=== PATIENT | male | born 1990 | race American Indian/Alaskan Native ===

== ENCOUNTER 2017-04-16 17:01 | Emergency (ER) | payer SELFPAY ==
[2017-04-16] MEDS ORDERED: NACL 0.9% 1000 ML 1,000 ML IV ONE (17:13)
--- NOTE | 2017-04-16 17:35 | Emergency Department Report ---
Chief Complaint: GI Bleed Stated Complaint: BLOOD FROM RECTUM Time Seen by Provider: 04/16/17 17:31 - HPI History of Present Illness: 26 y/o with recal bleeding and pain since Saturday. Hx/o Wiscott-Boyd syndrome. - ROS Review of Systems: denies any fever just chills and recatal pain - Exam Vital Signs: Vital Signs 04/16/17 17:10 Temperature 98.3 F Pulse Rate 129 H Respiratory 22 Rate Blood Pressure 135/94 O2 Sat by Pulse 97 Oximetry Physical Exam: Gen: alert oriented NAD Cardic: regular rate and rhythm no murmurs appreciated Resp: Clear to auscultation bilateral no wheezing no rales or rhonchi. Abdomen: Soft nontender nondistended normal bowel sounds. Mini neuro: Normal finger to nose exam, [id number] normal, Romberg neg, strengh 4/5 all extrimities, Alert and oriented time 3 Crainal nerve II-IIX intact MSE screening note: Focused history and physical exam performed. Due to findings the following was ordered: CBC CMP type and screen ordered patient be evaluated the main ER ED Disposition for MSE Condition: Stable Forms: Accompanied Note
[2017-04-16 17:47] LABS: Hematocrit 53.5 % (35.5-45.6); Hemoglobin 17.3 gm/dl (11.8-15.2); Mean Corpuscular HGB Conc 32 % (32-34); Mean Corpuscular Hemoglobin 26 pg (28-32); Mean Corpuscular Volume 82 fl (84-94); Red Blood Count 6.56 M/mm3 (3.65-5.03); Red Cell Distribution Width 14.2 % (13.2-15.2); White Blood Count 18.5 K/mm3 (4.5-11.0)
[2017-04-16 17:54] LABS: INR 1.12 (0.87-1.13)
[2017-04-16 17:55] LABS: Partial Thromboplastin Time 27.6 Sec. (24.2-36.6)
[2017-04-16 18:09] LABS: Alanine Aminotransferase 19 units/L (7-56); Albumin 4.2 g/dL (3.9-5); Alkaline Phosphatase 125 units/L (35-129); Anion Gap 25 mmol/L; BUN/Creatinine Ratio 12.72; Blood Urea Nitrogen 14 mg/dL (9-20); Calcium 10.1 mg/dL (8.4-10.2); Carbon Dioxide 25 mmol/L (22-30); Chloride 92.9 mmol/L (98-107); Glucose 104 mg/dL (75-100); Lipase 11 units/L (13-60); Potassium 3.4 mmol/L (3.6-5.0); Sodium 139 mmol/L (137-145); Total Protein 8.6 g/dL (6.3-8.2)
[2017-04-16 18:46] LABS: Basophils % (Manual) 0 % (0.0-1.8); Blastocytes % (Manual) 0 %; Eosinophils % (Manual) 0 % (0.0-4.3)
[2017-04-16 18:47] LABS: Diff Status Complete; Platelet Estimate Appears Decreased; RBC Morphology Normal
[2017-04-16 18:48] LABS: Platelet Count 76 K/mm3 (140-440)
--- NOTE | 2017-04-17 02:52 | Emergency Department Report ---
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 Patient states someone on for the last 5 days. He is had some blood in his underwear but has not had any bloody diarrhea. He has never encountered these symptoms before. Denies any constipation, diarrhea or abdominal pain. Severity scale (0 -10): 10 - Related Data Previous Rx's Medication Instructions Recorded Last Taken Type HYDROcodone/APAP 5-325 [[place] 1 each PO Q6HR PRN #20 tablet 03/31/14 Unknown Rx 5/325 mg] Amoxicillin [Trimox CAP] 500 mg PO Q8H #30 capsule 05/17/14 Unknown Rx HYDROcodone/APAP 5-325 [[place] 1 each PO Q6HR PRN #10 tablet 05/17/14 Unknown Rx 5/325] Ciprofloxacin [Ciprofloxacin ORAL 500 mg PO Q12H #14 ml 08/02/15 Unknown Rx LIQ] Phenazopyridine [Pyridium] 100 mg PO TID #6 tab 08/02/15 Unknown Rx Ibuprofen [Motrin] 800 mg PO Q8HR PRN #30 tablet 10/08/15 Unknown Rx Azithromycin [Zithromax Z-JOHANN] 250 mg PO DAILY #6 tab 12/15/15 Unknown Rx Chlorhexidine Mouthwash [Peridex] 15 ml MM BID #1 bottle 12/15/15 Unknown Rx Acetaminophen/Codeine [Tylenol 1 tab PO Q6H PRN #12 tab 03/08/16 Unknown Rx /Codeine # 3 tab] Clindamycin [Clindamycin CAP] 150 mg PO QID #40 capsule 03/08/16 Unknown Rx Neomy/Polymyx B/Hc (Otic) Soln 4 drops OTIC TID #1 bottle 05/27/16 Unknown Rx [Cortisporin (Otic) Soln] Ibuprofen [Motrin] 600 mg PO Q8H PRN #20 tablet 04/17/17 Unknown Rx Sulfamethoxazole/Trimethoprim 1 each PO BID #20 tablet 04/17/17 Unknown Rx [Bactrim DS TAB] Allergies Allergy/AdvReac Type Severity Reaction Status Date / Time No Known Allergies Allergy Unverified 03/31/14 10:05 ED Review of Systems ROS: Stated complaint: BLOOD FROM RECTUM Other details as noted in HPI Comment: All other systems reviewed and negative Constitutional: denies: chills, fever ENT: denies: ear pain Respiratory: denies: cough Cardiovascular: denies: chest pain Gastrointestinal: denies: abdominal pain, vomiting, diarrhea Genitourinary: denies: dysuria Skin: denies: rash Psychiatric: denies: anxiety ED Past Medical Hx - Past Medical History Previous Medical History?: Yes Hx Hypertension: No Hx CVA: No Additional medical history: Wiscott-Cushing syndrome - Surgical History Past Surgical History?: Yes Additional Surgical History: Infusion port placed & removed; [place] teeth extraction - Social History Smoking Status: Unknown if ever smoked Substance Use Type: None - Medications Home Medications: Home Medications Medication Instructions Recorded Confirmed Last Taken Type HYDROcodone/APAP 5-325 [[place] 1 each PO Q6HR PRN #20 tablet 03/31/14 Unknown Rx 5/325 mg] Amoxicillin [Trimox CAP] 500 mg PO Q8H #30 capsule 05/17/14 Unknown Rx HYDROcodone/APAP 5-325 [[place] 1 each PO Q6HR PRN #10 tablet 05/17/14 Unknown Rx 5/325] Ciprofloxacin [Ciprofloxacin ORAL 500 mg PO Q12H #14 ml 08/02/15 Unknown Rx LIQ] Phenazopyridine [Pyridium] 100 mg PO TID #6 tab 08/02/15 Unknown Rx Ibuprofen [Motrin] 800 mg PO Q8HR PRN #30 tablet 10/08/15 Unknown Rx Azithromycin [Zithromax Z-JOHANN] 250 mg PO DAILY #6 tab 12/15/15 Unknown Rx Chlorhexidine Mouthwash [Peridex] 15 ml MM BID #1 bottle 12/15/15 Unknown Rx Acetaminophen/Codeine [Tylenol 1 tab PO Q6H PRN #12 tab 03/08/16 Unknown Rx /Codeine # 3 tab] Clindamycin [Clindamycin CAP] 150 mg PO QID #40 capsule 03/08/16 Unknown Rx Neomy/Polymyx B/Hc (Otic) Soln 4 drops OTIC TID #1 bottle 05/27/16 Unknown Rx [Cortisporin (Otic) Soln] Ibuprofen [Motrin] 600 mg PO Q8H PRN #20 tablet 04/17/17 Unknown Rx Sulfamethoxazole/Trimethoprim 1 each PO BID #20 tablet 04/17/17 Unknown Rx [Bactrim DS TAB] ED Physical Exam - General Limitations: No Limitations - Head Head exam: Present: atraumatic - Eye Eye exam: Present: normal appearance - ENT ENT exam: Present: normal exam - Neck Neck exam: Present: normal inspection - Respiratory Respiratory exam: Present: normal lung sounds bilaterally. Absent: respiratory distress - Cardiovascular Cardiovascular Exam: Present: normal rhythm, tachycardia - GI/Abdominal GI/Abdominal exam: Present: soft. Absent: distended, tenderness - Rectal Rectal exam: Present: other (external hemorrhoids present, tender to examination , examination limited as the patient has significant tenderness, no signs of a thrombosed hemorrhoid or perianal abscess, swelling and fluctuance above anus) ED Course Vital Signs 04/16/17 04/16/17 04/17/17 17:10 23:12 05:35 Temperature 98.3 F 98.1 F Pulse Rate 129 H 128 H 100 H Respiratory 22 26 H 16 Rate Blood Pressure 135/94 138/107 Blood Pressure 118/88 [Right] O2 Sat by Pulse 97 98 99 Oximetry 04/17/17 07:11 Temperature Pulse Rate 101 H Respiratory 16 Rate Blood Pressure Blood Pressure 122/86 [Right] O2 Sat by Pulse 99 Oximetry - I & D Buttocks Type of Procedure: Simple Site: midline buttox above anus Blade Size: 11 I & D Procedure: gauze wick placed Progress: 12 cc 2% Lidocaine with epinephrine injected into the site approximately 4 cm above the anus, 1.5 cm incision made with a scalpel, hemostat used to explore the wound and then the pocket with copious amounts of pus removed as very foul smelling, iodoform packing placed, dressing applied, no complications ED Medical Decision Making - Lab Data Result diagrams: 04/17/17 03:33 04/16/17 17:26 - Medical Decision Making Labs ordered Labs show high hemoglobin, platelets are low but are expected with Wiskott- Boyd Critical care attestation.: If time is entered above; I have spent that time in minutes in the direct care of this critically ill patient, excluding procedure time. ED Disposition Clinical Impression: Abscess Disposition: DISCHARGED TO HOME OR SELFCARE Is pt being admited?: No Does the pt Need Aspirin: No Condition: Stable Instructions: Abscess Incision and Drainage (ED), Abscess (ED), Sitz Bath (GEN) Additional Instructions: Please follow up with the primary care physician in the next 3-5 days and follow up in the ER in 48 hours for wound check. Return to the ER earlier if your symptoms significantly worsen or you develop new symptoms. Use sitz baths 3 times a day as we had discussed. Prescriptions: Ibuprofen [Motrin] 600 mg PO Q8H PRN #20 tablet PRN Reason: Pain Sulfamethoxazole/Trimethoprim [Bactrim DS TAB] 1 each PO BID #20 tablet Referrals: PRIMARY CARE, [Primary Care Provider] - 3-5 Days Forms: Accompanied Note
[2017-04-17] MEDS ORDERED: XYLOCAINE TOPICAL 4% TP ONE (02:59)
[2017-04-17] MEDS ORDERED: MORPHINE IV ONE (03:03)
[2017-04-17] MEDS ORDERED: TYLENOL PO ONE (03:04)
[2017-04-17] MEDS ORDERED: NACL 0.9% 1000 ML 1,000 ML ONE (03:14)
[2017-04-17] MEDS ORDERED: NACL ONE (03:25)
[2017-04-17 04:08] LABS: Basophils % (Auto) 0.1 % (0.0-1.8); Eosinophils % (Auto) 0.4 % (0.0-4.3); Hematocrit 48.9 % (35.5-45.6); Mean Corpuscular HGB Conc 33 % (32-34); Mean Corpuscular Hemoglobin 27 pg (28-32); Mean Corpuscular Volume 82 fl (84-94); Red Blood Count 5.95 M/mm3 (3.65-5.03); Red Cell Distribution Width 13.9 % (13.2-15.2)
[2017-04-17 04:31] LABS: Platelet Count 134 K/mm3 (140-440)
--- NOTE | 2017-04-17 05:28 | Cat Scan Report ---
FINAL REPORT PROCEDURE: CT ABDOMEN PELVIS W CON TECHNIQUE: Computerized axial tomography of the abdomen and pelvis was performed after the IV injection of iodinated nonionic contrast. HISTORY: perirectal pain COMPARISON: No prior studies are available for comparison. FINDINGS: Visualized lower thorax: No significant abnormality. Liver: Normal size and attenuation. Spleen: Normal size and attenuation. Gallbladder and biliary system: Normal. Pancreas: Normal. Adrenals: Normal. Kidneys: Normal. GI tract: Normal. Lymph nodes and mesentery: Normal. Vasculature: Normal. Bladder: Normal. Reproductive organs: Normal. Peritoneum: No free fluid. There is a subcutaneous mass posterior to the coccyx extending from the skin surface to the posterior margin of the anus and extending across the midline of the buttock region. This measures 6.3 x 5.6 x 5.7 centimeters in diameter. This could be an abscess. There is surrounding induration suggesting cellulitis. Percutaneous aspiration may be helpful. IMPRESSION: There is no intra-abdominal pathology. There is a subcutaneous mass posterior to the coccyx extending from the skin surface to the posterior margin of the anus and extending across the midline of the buttock region. This measures 6.3 x 5.6 x 5.7 centimeters in diameter. This could be an abscess. There is surrounding induration suggesting cellulitis. Percutaneous aspiration may be helpful.
[2017-04-17] MEDS ORDERED: XYLOCAINE 2%/EPI 1:100,000 INFILTRATI ONE (05:42)
[2017-04-17] MEDS ORDERED: TYLENOL ONE (05:50)
[2017-04-17 07:12] VITALS: BP 122/86
== END 2017-04-17 07:10 | disposition home or self-care (01) ==
LOC: ED 17:01
DX: L02.31 Cutaneous abscess of buttock (principal)
CPT/HCPCS: 10060; 36415; 74177; 80053; 83690; 85007; 85025; 85610; 85730; 86850; 86900; 86901; 93005; 93010; 96361; 96374; 99284; J2270; J7030; Q9967

== ENCOUNTER 2017-04-20 08:53 | Emergency (ER) | payer SELFPAY ==
--- NOTE | 2017-04-20 09:32 | Emergency Department Report ---
Abscess Boil HPI - HPI Chief Complaint: Medical Clearance Stated Complaint: CHECK UP Time Seen by Provider: 04/20/17 09:16 History: Yes Purulent Drainage, No Fever, No Pain, No Numbness, No Foreign Body , No Previous History, No Insect Bite HPI: Patient here for abscess I&D recheck. Patient was seen here on the . She denies fever, chills, nausea vomiting, or worsening of abscess the patient states he is taking his antibiotics but still has continued drainage. Home Medications: Previous Rx's Medication Instructions Recorded Last Taken Type HYDROcodone/APAP 5-325 [[place] 1 each PO Q6HR PRN #20 tablet 03/31/14 Unknown Rx 5/325 mg] Amoxicillin [Trimox CAP] 500 mg PO Q8H #30 capsule 05/17/14 Unknown Rx HYDROcodone/APAP 5-325 [[place] 1 each PO Q6HR PRN #10 tablet 05/17/14 Unknown Rx 5/325] Ciprofloxacin [Ciprofloxacin ORAL 500 mg PO Q12H #14 ml 08/02/15 Unknown Rx LIQ] Phenazopyridine [Pyridium] 100 mg PO TID #6 tab 08/02/15 Unknown Rx Ibuprofen [Motrin] 800 mg PO Q8HR PRN #30 tablet 10/08/15 Unknown Rx Azithromycin [Zithromax Z-JOHANN] 250 mg PO DAILY #6 tab 12/15/15 Unknown Rx Chlorhexidine Mouthwash [Peridex] 15 ml MM BID #1 bottle 12/15/15 Unknown Rx Acetaminophen/Codeine [Tylenol 1 tab PO Q6H PRN #12 tab 03/08/16 Unknown Rx /Codeine # 3 tab] Clindamycin [Clindamycin CAP] 150 mg PO QID #40 capsule 03/08/16 Unknown Rx Neomy/Polymyx B/Hc (Otic) Soln 4 drops OTIC TID #1 bottle 05/27/16 Unknown Rx [Cortisporin (Otic) Soln] Ibuprofen [Motrin] 600 mg PO Q8H PRN #20 tablet 04/17/17 Unknown Rx Sulfamethoxazole/Trimethoprim 1 each PO BID #20 tablet 04/17/17 Unknown Rx [Bactrim DS TAB] HYDROcodone/APAP 5-325 [[place] 1 each PO Q6HR PRN #8 tablet 04/20/17 Unknown Rx 5/325] Prednisone [predniSONE 10 mg 10 mg PO .TAPER #1 tab.ds.pk 04/20/17 Unknown Rx (6-Day Pack, 21 Tabs)] Allergies/Adverse Reactions: Allergies Allergy/AdvReac Type Severity Reaction Status Date / Time No Known Allergies Allergy Unverified 03/31/14 10:05 ED Review of Systems ROS: Stated complaint: CHECK UP Other details as noted in HPI Constitutional: denies: chills, fever Eyes: denies: eye pain, eye discharge, vision change ENT: denies: ear pain, throat pain Respiratory: denies: cough, shortness of breath, wheezing Cardiovascular: denies: chest pain, palpitations Endocrine: no symptoms reported Gastrointestinal: denies: abdominal pain, nausea, vomiting, diarrhea, constipation, hematemesis, melena Genitourinary: denies: urgency, dysuria Musculoskeletal: denies: back pain, joint swelling, arthralgia Skin: rash, lesions, pruritus Neurological: denies: headache, weakness, paresthesias Psychiatric: denies: anxiety, depression Hematological/Lymphatic: denies: easy bleeding, easy bruising ED Past Medical Hx - Past Medical History Hx Hypertension: No Hx CVA: No Additional medical history: Wiscott-[place] syndrome - Surgical History Additional Surgical History: Infusion port placed & removed; [place] teeth extraction - Social History Smoking Status: Never Smoker - Medications Home Medications: Home Medications Medication Instructions Recorded Confirmed Last Taken Type HYDROcodone/APAP 5-325 [[place] 1 each PO Q6HR PRN #20 tablet 03/31/14 Unknown Rx 5/325 mg] Amoxicillin [Trimox CAP] 500 mg PO Q8H #30 capsule 05/17/14 Unknown Rx HYDROcodone/APAP 5-325 [[place] 1 each PO Q6HR PRN #10 tablet 05/17/14 Unknown Rx 5/325] Ciprofloxacin [Ciprofloxacin ORAL 500 mg PO Q12H #14 ml 08/02/15 Unknown Rx LIQ] Phenazopyridine [Pyridium] 100 mg PO TID #6 tab 08/02/15 Unknown Rx Ibuprofen [Motrin] 800 mg PO Q8HR PRN #30 tablet 10/08/15 Unknown Rx Azithromycin [Zithromax Z-JOHANN] 250 mg PO DAILY #6 tab 12/15/15 Unknown Rx Chlorhexidine Mouthwash [Peridex] 15 ml MM BID #1 bottle 12/15/15 Unknown Rx Acetaminophen/Codeine [Tylenol 1 tab PO Q6H PRN #12 tab 03/08/16 Unknown Rx /Codeine # 3 tab] Clindamycin [Clindamycin CAP] 150 mg PO QID #40 capsule 03/08/16 Unknown Rx Neomy/Polymyx B/Hc (Otic) Soln 4 drops OTIC TID #1 bottle 05/27/16 Unknown Rx [Cortisporin (Otic) Soln] Ibuprofen [Motrin] 600 mg PO Q8H PRN #20 tablet 04/17/17 Unknown Rx Sulfamethoxazole/Trimethoprim 1 each PO BID #20 tablet 04/17/17 Unknown Rx [Bactrim DS TAB] HYDROcodone/APAP 5-325 [[place] 1 each PO Q6HR PRN #8 tablet 04/20/17 Unknown Rx 5/325] Prednisone [predniSONE 10 mg 10 mg PO .TAPER #1 tab.ds.pk 04/20/17 Unknown Rx (6-Day Pack, 21 Tabs)] ED Abscess Boil Physical Exam - Exam General: Vital signs noted. No distress. Alert and acting appropriately. Patient's pilonidal incision and drainage site still noted to have moderate serous and purulent discharge. Packing had already fallen out. No tissue crepitus, lateralization, lymphangitis, or lymphadenopathy noted. No packing replaced, but sterile dressing placed over drainage site. On physical exam patient noted to have severe eczema/atopy. Exam: Yes Tenderness, No Fluctuance, No Surrounding Cellulites/Erythema, No Lymphangitis, No Crepitation, No Heart Murmur, No Normal Neurologic Exam, No Normal Circulation ED Course Vital Signs 04/20/17 09:02 Temperature 98.4 F Pulse Rate 131 H Respiratory 20 Rate Blood Pressure 130/87 O2 Sat by Pulse 98 Oximetry Critical care attestation.: If time is entered above; I have spent that time in minutes in the direct care of this critically ill patient, excluding procedure time. ED Disposition Clinical Impression: Abscess re-check, Atopic dermatitis Disposition: DISCHARGED TO HOME OR SELFCARE Is pt being admited?: No Condition: Stable Instructions: Abscess Incision and Drainage (ED) Prescriptions: HYDROcodone/APAP 5-325 [[place] 5/325] 1 each PO Q6HR PRN #8 tablet PRN Reason: Pain Prednisone [predniSONE 10 mg (6-Day Pack, 21 Tabs)] 10 mg PO .TAPER #1 tab.ds.pk Referrals: PRIMARY CARE, [Primary Care Provider] - 3-5 Days Forms: Work/School Release Form(ED)
[2017-04-20 10:21] VITALS: BP 111/74
== END 2017-04-20 09:50 | disposition home or self-care (01) ==
LOC: ED 08:53
DX: L20.89 Other atopic dermatitis (principal); L05.01 Pilonidal cyst with abscess
CPT/HCPCS: 99282

== ENCOUNTER 2017-08-25 08:17 | Emergency (ER) | payer SELFPAY ==
[2017-08-25 08:50] VITALS: BP 117/87
[2017-08-25] MEDS ORDERED: XYLOCAINE 1% MPF 5 mL INFILTRATI ONE (09:36)
--- NOTE | 2017-08-25 09:36 | Emergency Department Report ---
Abscess Boil HPI - HPI Chief Complaint: Skin/Abscess/Foreign Body Stated Complaint: BOIL Time Seen by Provider: 08/25/17 09:31 Duration: 2 Days Location: Upper Extremity History: Yes Pain, Yes Previous History, No Fever, No Purulent Drainage, No Numbness, No Foreign Body, No Insect Bite HPI: Pt reports recurrent R axillary abscess x 2 days. No other complaints. Home Medications: Previous Rx's Medication Instructions Recorded Last Taken Type HYDROcodone/APAP 5-325 [[place] 1 each PO Q6HR PRN #20 tablet 03/31/14 Unknown Rx 5/325 mg] Amoxicillin [Trimox CAP] 500 mg PO Q8H #30 capsule 05/17/14 Unknown Rx HYDROcodone/APAP 5-325 [[place] 1 each PO Q6HR PRN #10 tablet 05/17/14 Unknown Rx 5/325] Ciprofloxacin [Ciprofloxacin ORAL 500 mg PO Q12H #14 ml 08/02/15 Unknown Rx LIQ] Phenazopyridine [Pyridium] 100 mg PO TID #6 tab 08/02/15 Unknown Rx Azithromycin [Zithromax Z-JOHANN] 250 mg PO DAILY #6 tab 12/15/15 Unknown Rx Chlorhexidine Mouthwash [Peridex] 15 ml MM BID #1 bottle 12/15/15 Unknown Rx Acetaminophen/Codeine [Tylenol 1 tab PO Q6H PRN #12 tab 03/08/16 Unknown Rx /Codeine # 3 tab] Clindamycin [Clindamycin CAP] 150 mg PO QID #40 capsule 03/08/16 Unknown Rx Neomy/Polymyx B/Hc (Otic) Soln 4 drops OTIC TID #1 bottle 05/27/16 Unknown Rx [Cortisporin (Otic) Soln] Ibuprofen [Motrin] 600 mg PO Q8H PRN #20 tablet 04/17/17 Unknown Rx Sulfamethoxazole/Trimethoprim 1 each PO BID #20 tablet 04/17/17 Unknown Rx [Bactrim DS TAB] HYDROcodone/APAP 5-325 [[place] 1 each PO Q6HR PRN #8 tablet 04/20/17 Unknown Rx 5/325] Prednisone [predniSONE 10 mg 10 mg PO .TAPER #1 tab.ds.pk 04/20/17 Unknown Rx (6-Day Pack, 21 Tabs)] Ibuprofen [Motrin 800 MG tab] 800 mg PO Q8HR PRN #20 tablet 08/25/17 Unknown Rx Sulfamethoxazole/Trimethoprim 1 each PO BID #20 tablet 08/25/17 Unknown Rx [Bactrim DS TAB] Allergies/Adverse Reactions: Allergies Allergy/AdvReac Type Severity Reaction Status Date / Time No Known Allergies Allergy Unverified 03/31/14 10:05 ED Review of Systems ROS: Stated complaint: BOIL Other details as noted in HPI Comment: All other systems reviewed and negative Constitutional: denies: chills, fever Eyes: denies: eye pain, eye discharge, vision change ENT: denies: ear pain, throat pain Respiratory: denies: cough, shortness of breath, wheezing Cardiovascular: denies: chest pain, palpitations Endocrine: no symptoms reported Gastrointestinal: denies: abdominal pain, nausea, diarrhea Genitourinary: denies: urgency, dysuria Musculoskeletal: denies: back pain, joint swelling, arthralgia Skin: as per HPI. denies: rash, lesions Neurological: denies: headache, weakness, paresthesias Psychiatric: denies: anxiety, depression Hematological/Lymphatic: denies: easy bleeding, easy bruising ED Past Medical Hx - Past Medical History Hx Hypertension: No Hx CVA: No Additional medical history: Wiscott-Boyd syndrome - Surgical History Additional Surgical History: Infusion port placed & removed; [place] teeth extraction - Social History Smoking Status: Never Smoker - Medications Home Medications: Home Medications Medication Instructions Recorded Confirmed Last Taken Type HYDROcodone/APAP 5-325 [[place] 1 each PO Q6HR PRN #20 tablet 03/31/14 Unknown Rx 5/325 mg] Amoxicillin [Trimox CAP] 500 mg PO Q8H #30 capsule 05/17/14 Unknown Rx HYDROcodone/APAP 5-325 [[place] 1 each PO Q6HR PRN #10 tablet 05/17/14 Unknown Rx 5/325] Ciprofloxacin [Ciprofloxacin ORAL 500 mg PO Q12H #14 ml 08/02/15 Unknown Rx LIQ] Phenazopyridine [Pyridium] 100 mg PO TID #6 tab 08/02/15 Unknown Rx Azithromycin [Zithromax Z-JOHANN] 250 mg PO DAILY #6 tab 12/15/15 Unknown Rx Chlorhexidine Mouthwash [Peridex] 15 ml MM BID #1 bottle 12/15/15 Unknown Rx Acetaminophen/Codeine [Tylenol 1 tab PO Q6H PRN #12 tab 03/08/16 Unknown Rx /Codeine # 3 tab] Clindamycin [Clindamycin CAP] 150 mg PO QID #40 capsule 03/08/16 Unknown Rx Neomy/Polymyx B/Hc (Otic) Soln 4 drops OTIC TID #1 bottle 05/27/16 Unknown Rx [Cortisporin (Otic) Soln] Ibuprofen [Motrin] 600 mg PO Q8H PRN #20 tablet 04/17/17 Unknown Rx Sulfamethoxazole/Trimethoprim 1 each PO BID #20 tablet 04/17/17 Unknown Rx [Bactrim DS TAB] HYDROcodone/APAP 5-325 [[place] 1 each PO Q6HR PRN #8 tablet 04/20/17 Unknown Rx 5/325] Prednisone [predniSONE 10 mg 10 mg PO .TAPER #1 tab.ds.pk 04/20/17 Unknown Rx (6-Day Pack, 21 Tabs)] Ibuprofen [Motrin 800 MG tab] 800 mg PO Q8HR PRN #20 tablet 08/25/17 Unknown Rx Sulfamethoxazole/Trimethoprim 1 each PO BID #20 tablet 08/25/17 Unknown Rx [Bactrim DS TAB] ED Abscess Boil Physical Exam - Exam General: Vital signs noted. No distress. Alert and acting appropriately. Size: 5 cm (R axilla; mild associated lymphadenopathy) Exam: Yes Tenderness, Yes Fluctuance, Yes Normal Neurologic Exam, Yes Normal Circulation, No Surrounding Cellulites/Erythema, No Lymphangitis, No Crepitation , No Heart Murmur I & D Note - I & D Note I & D Note: Area was prepped and draped in usual sterile fashion. 2 cc of 1% lidocaine injected with adequate anesthesia. Small incision made to center of abscess and copious purulent drainage expressed. Wound was probed and deloculated. Dressing applied. Pt tolerated well. ED Course Vital Signs 08/25/17 08:47 Temperature 98.2 F Pulse Rate 63 Respiratory 16 Rate Blood Pressure 117/87 O2 Sat by Pulse 98 Oximetry - Reevaluation(s) Reevaluation #1: 08/25/17 10:08 Pt is in NAD and stable for d/c. Critical care attestation.: If time is entered above; I have spent that time in minutes in the direct care of this critically ill patient, excluding procedure time. ED Medical Decision Making - Medical Decision Making Pt with abscess. I&D performed. Supportive care and follow up given. - Differential Diagnosis abscess, cellulitis ED Disposition Clinical Impression: Abscess of axilla, right Disposition: DC- TO HOME OR SELFCARE Is pt being admited?: No Condition: Good Instructions: Abscess (ED) Prescriptions: Ibuprofen [Motrin 800 MG tab] 800 mg PO Q8HR PRN #20 tablet PRN Reason: pain/anti-inflammatory Sulfamethoxazole/Trimethoprim [Bactrim DS TAB] 1 each PO BID #20 tablet Referrals: PRIMARY CARE, [Primary Care Provider] - 3-5 Days ALEJANDRO OSORIO MD [Staff Physician] - 3-5 Days Forms: Work/School Release Form(ED) Time of Disposition: 10:10
== END 2017-08-25 10:26 | disposition home or self-care (01) ==
LOC: ED 08:17
DX: L02.411 Cutaneous abscess of right axilla (principal)
CPT/HCPCS: 99282

== ENCOUNTER 2018-05-21 18:32 | Emergency (ER) | payer OTHER ==
[2018-05-21 19:20] LABS: INR 0.96 (0.87-1.13)
[2018-05-21 19:24] LABS: BUN/Creatinine Ratio 9; Blood Urea Nitrogen 8 mg/dL (9-20); Hemolysis Index 14
[2018-05-21] MEDS ORDERED: DELTASONE PO ONE (19:44)
[2018-05-21] MEDS ORDERED: BACTRIM DS PO ONE (19:44)
--- NOTE | 2018-05-21 20:00 | Emergency Department Report ---
HPI - General Chief Complaint: Skin Rash Time Seen by Provider: 05/21/18 19:22 - HPI HPI: 27-year-old -[place] male presents to the emergency department with complaint of a bad eczema flareup that has been going on over the past month. The patient has the eczema rash "everywhere" including his face, scalp, chest, back, abdomen and legs. He says that he used to use triamcinolone "from the jar " but he ran out of that medication. The patient says that when he turned 24 he was denied any Medicare or Medicaid or governmental unemployment insurance hearing officer and therefore has not been able to see a digital campaign manager. He does not have a primary care physician although says he has been to [facility] once in the past. He denies any fever. However he says the rash has gotten so bad that he has started having some cracking in the skin and a little bit of drainage. He denies any fever. 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 ED Past Medical Hx - Past Medical History Previous Medical History?: Yes Hx Hypertension: No Hx CVA: No Additional medical history: Wiscott-Boyd syndrome. eczema - Surgical History Past Surgical History?: Yes Additional Surgical History: Infusion port placed & removed; [place] teeth extraction - Social History Smoking Status: Current Every Day Smoker Substance Use Type: Alcohol - Medications Home Medications: Home Medications Medication Instructions Recorded Confirmed Last Taken Type HYDROcodone/APAP 5-325 [[place] 1 each PO Q6HR PRN #20 tablet 03/31/14 Unknown Rx 5/325 mg] Amoxicillin [Trimox CAP] 500 mg PO Q8H #30 capsule 05/17/14 Unknown Rx HYDROcodone/APAP 5-325 [[place] 1 each PO Q6HR PRN #10 tablet 05/17/14 Unknown Rx 5/325] Ciprofloxacin [Ciprofloxacin ORAL 500 mg PO Q12H #14 ml 08/02/15 Unknown Rx LIQ] Phenazopyridine [Pyridium] 100 mg PO TID #6 tab 08/02/15 Unknown Rx Azithromycin [Zithromax Z-JOHANN] 250 mg PO DAILY #6 tab 12/15/15 Unknown Rx Chlorhexidine Mouthwash [Peridex] 15 ml MM BID #1 bottle 12/15/15 Unknown Rx Acetaminophen/Codeine [Tylenol 1 tab PO Q6H PRN #12 tab 03/08/16 Unknown Rx /Codeine # 3 tab] Clindamycin [Clindamycin CAP] 150 mg PO QID #40 capsule 03/08/16 Unknown Rx Neomy/Polymyx B/Hc (Otic) Soln 4 drops OTIC TID #1 bottle 05/27/16 Unknown Rx [Cortisporin (Otic) Soln] Ibuprofen [Motrin] 600 mg PO Q8H PRN #20 tablet 04/17/17 Unknown Rx Sulfamethoxazole/Trimethoprim 1 each PO BID #20 tablet 04/17/17 Unknown Rx [Bactrim DS TAB] HYDROcodone/APAP 5-325 [[place] 1 each PO Q6HR PRN #8 tablet 04/20/17 Unknown Rx 5/325] Prednisone [predniSONE 10 mg 10 mg PO .TAPER #1 tab.ds.pk 04/20/17 Unknown Rx (6-Day Pack, 21 Tabs)] Ibuprofen [Motrin 800 MG tab] 800 mg PO Q8HR PRN #20 tablet 08/25/17 Unknown Rx Sulfamethoxazole/Trimethoprim 1 each PO BID #20 tablet 08/25/17 Unknown Rx [Bactrim DS TAB] Sulfamethoxazole/Trimethoprim 1 each PO BID #14 tablet 05/21/18 Unknown Rx [Bactrim DS TAB] Triamcinolone Acetonide 454 gm TP BID #1 cream..g. 05/21/18 Unknown Rx methylPREDNISolone [Medrol Dose 4 mg PO QDAY #1 pack 05/21/18 Unknown Rx Johann] ED Review of Systems ROS: Stated complaint: ECZEMA FLARE UP Other details as noted in HPI Comment: All other systems reviewed and negative Constitutional: denies: chills, fever Eyes: denies: eye pain, eye discharge, vision change ENT: denies: ear pain, throat pain Respiratory: denies: cough, shortness of breath, wheezing Cardiovascular: denies: chest pain, palpitations Gastrointestinal: denies: abdominal pain, nausea, diarrhea Genitourinary: denies: urgency, dysuria Musculoskeletal: denies: back pain, joint swelling, arthralgia Skin: rash, pruritus Neurological: denies: headache, weakness, paresthesias Physical Exam - Physical Exam Vital Signs: Vital Signs 05/21/18 05/21/18 18:37 19:20 Temperature 98.7 F 98 F Pulse Rate 109 H 88 Respiratory 18 16 Rate Blood Pressure 129/88 Blood Pressure 125/85 [Right] O2 Sat by Pulse 97 100 Oximetry Physical Exam: GENERAL: The patient is well-developed well-nourished. HENT: Normocephalic. Atraumatic. Patient has moist mucous membranes. EYES: Extraocular motions are intact. Pupils equal reactive to light bilaterally. NECK: Supple. Trachea is midline. CHEST/LUNGS: Clear to auscultation. There is no respiratory distress noted. HEART/CARDIOVASCULAR: Regular. There is no tachycardia. There is no murmur. ABDOMEN: Abdomen is soft, nontender. Patient has normal bowel sounds. There is no abdominal distention. SKIN: Skin is warm and dry. The patient has a dry scaly rash to just about everywhere in his body including the face and scalp that appears consistent with his history of eczema. No current bleeding, weeping or drainage. NEURO: The patient is awake, alert, and oriented. The patient is cooperative. The patient has no focal neurologic deficits. The patient has normal speech. MUSCULOSKELETAL: There is no tenderness or deformity. There is no limitation range of motion. There is no evidence of acute injury. ED Course Vital Signs 05/21/18 05/21/18 18:37 19:20 Temperature 98.7 F 98 F Pulse Rate 109 H 88 Respiratory 18 16 Rate Blood Pressure 129/88 Blood Pressure 125/85 [Right] O2 Sat by Pulse 97 100 Oximetry - Consultations Consultation #1: I spoke with the interpreter deaf on-call, Dr. Rodriguez, regarding the patient's genetic syndrome and his thrombocytopenia. She feels that since the patient usually has an even lower platelet count of about 5, and is currently at 20, without any spontaneous bleeding, that he does not require any platelet transfusion and may not require inpatient admission. She is happy to follow the patient outpatient regarding the thrombocytopenia but says that he may need to see a genetic specialist through [facility]. 05/21/18 23:43 ED Medical Decision Making - Lab Data Result diagrams: 05/21/18 19:36 05/21/18 18:50 - Medical Decision Making Patient presents with the complaint of his eczema that has been going on for the past month and flaring up. 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 No spontaneous bleeding. This is higher than he usually runs at a baseline. As per the consultation section, spoke with the interpreter deaf who feels that he is safe for discharge home. She is okay with the patient going home on a Medrol Dosepak for his eczema and he has been given some triamcinolone cream. He is given a referral for the interpreter deaf. He is also given a prescription for antibiotics. I sent stable currently afebrile. He will return to the ER with any worsening of symptoms or any acute distress. - Differential Diagnosis eczema, psoriasis, TTP, ITP Critical Care Time: No Critical care attestation.: If time is entered above; I have spent that time in minutes in the direct care of this critically ill patient, excluding procedure time. ED Disposition Clinical Impression: Wiskott-Boyd syndrome, Thrombocytopenia Eczema Qualifiers: Eczema type: unspecified Qualified Code(s): L30.9 - Dermatitis, unspecified Disposition: DC- TO HOME OR SELFCARE Is pt being admited?: No Condition: Stable Instructions: Eczema (ED), Thrombocytopenia (ED) Additional Instructions: Please follow up with the primary care physician. I have given you a referral for the interpreter deaf that we spoke about, Dr. Rodriguez. Return to the emergency department with any development of fever, spontaneous bleeding, worsening of your symptoms, or with any acute distress. Prescriptions: methylPREDNISolone [Medrol Dose Johann] 4 mg PO QDAY #1 pack Sulfamethoxazole/Trimethoprim [Bactrim DS TAB] 1 each PO BID #14 tablet Triamcinolone Acetonide 454 gm TP BID #1 cream..g. Referrals: PRIMARY CAREMD [Primary Care Provider] - 3-5 Days JORGE RODRIGUEZ MD [Staff Physician] - 3-5 Days [facility] [Outside] - 3-5 Days Time of Disposition: 21:45
[2018-05-21 20:53] LABS: Hematocrit 47.3 % (35.5-45.6); Hemoglobin 15.2 gm/dl (11.8-15.2); Mean Corpuscular HGB Conc 32 % (32-34); Mean Corpuscular Hemoglobin 27 pg (28-32); Mean Corpuscular Volume 84 fl (84-94); Platelet Count 20 K/mm3 (140-440); Red Blood Count 5.63 M/mm3 (3.65-5.03); Red Cell Distribution Width 14.8 % (13.2-15.2)
[2018-05-21 21:23] VITALS: BP 126/80
== END 2018-05-21 22:25 | disposition home or self-care (01) ==
LOC: ED 18:32
DX: D82.0 Wiskott-Aldrich syndrome (principal); D69.6 Thrombocytopenia, unspecified; L30.9 Dermatitis, unspecified; F17.200 Nicotine dependence, unspecified, uncomplicated; Z79.899 Other long term (current) drug therapy
CPT/HCPCS: 36415; 80048; 85027; 85610; 85730; 99283; J7512

== ENCOUNTER 2019-03-01 07:04 | Emergency (ER) | payer OTHER ==
[2019-03-01 07:13] VITALS: BP 132/84
--- NOTE | 2019-03-01 09:19 | Emergency Department Report ---
ED Rash HPI - HPI Chief Complaint: Skin Rash Stated Complaint: SKIN IRRITATION Time Seen by Provider: 03/01/19 09:02 Duration: montha Location: Neck, Chest, Back, Upper Extremities Suspected Cause: Unknown Rash Symptoms: Yes Itching, No Facial Swelling, No Tongue/Oral Swelling, No Breathing Difficulties, No Choking Sensation, No Wheezing/Dyspnea, No Peeling, No Blistering, No Fever, No Lightheaded, No Malaise, No Myalgias Severity: moderate Other History: This is a 28-year-old male nontoxic, well nourished in [facility], no acute signs of distress presents to the ED with c/o of eczema flareup. Patient stated that he is out of his triamcinolone cream. Patient denies any nausea, vomiting, chest pain, shortness of breathe, fever, chills, headache, stiff neck. Patient deneis any drug allergies. ED Review of Systems ROS: Stated complaint: SKIN IRRITATION Other details as noted in HPI Constitutional: denies: chills, fever Eyes: denies: eye pain, eye discharge, vision change ENT: denies: ear pain, throat pain Respiratory: denies: cough, shortness of breath, wheezing Cardiovascular: denies: chest pain, palpitations Endocrine: no symptoms reported Gastrointestinal: denies: abdominal pain, nausea, diarrhea Genitourinary: denies: urgency, dysuria Musculoskeletal: denies: back pain, joint swelling, arthralgia Skin: denies: rash, lesions Neurological: denies: headache, weakness, paresthesias Psychiatric: denies: anxiety, depression Hematological/Lymphatic: denies: easy bleeding, easy bruising ED Past Medical Hx - Past Medical History Hx Hypertension: No Hx CVA: No Additional medical history: Wiscott-[place] syndrome. eczema - Surgical History Additional Surgical History: Infusion port placed & removed; [place] teeth extraction - Social History Smoking Status: Never Smoker Substance Use Type: None - Medications Home Medications: Home Medications Medication Instructions Recorded Confirmed Last Taken Type HYDROcodone/APAP 5-325 [[place] 1 each PO Q6HR PRN #20 tablet 03/31/14 Unknown Rx 5/325 mg] Amoxicillin [Trimox CAP] 500 mg PO Q8H #30 capsule 05/17/14 Unknown Rx HYDROcodone/APAP 5-325 [[place] 1 each PO Q6HR PRN #10 tablet 05/17/14 Unknown Rx 5/325] Ciprofloxacin [Ciprofloxacin ORAL 500 mg PO Q12H #14 ml 08/02/15 Unknown Rx LIQ] Phenazopyridine [Pyridium] 100 mg PO TID #6 tab 08/02/15 Unknown Rx Azithromycin [Zithromax Z-JOHANN] 250 mg PO DAILY #6 tab 12/15/15 Unknown Rx Chlorhexidine Mouthwash [Peridex] 15 ml MM BID #1 bottle 12/15/15 Unknown Rx Acetaminophen/Codeine [Tylenol 1 tab PO Q6H PRN #12 tab 03/08/16 Unknown Rx /Codeine # 3 tab] Clindamycin [Clindamycin CAP] 150 mg PO QID #40 capsule 03/08/16 Unknown Rx Neomy/Polymyx B/Hc (Otic) Soln 4 drops OTIC TID #1 bottle 05/27/16 Unknown Rx [Cortisporin (Otic) Soln] Ibuprofen [Motrin] 600 mg PO Q8H PRN #20 tablet 04/17/17 Unknown Rx Sulfamethoxazole/Trimethoprim 1 each PO BID #20 tablet 04/17/17 Unknown Rx [Bactrim DS TAB] HYDROcodone/APAP 5-325 [[place] 1 each PO Q6HR PRN #8 tablet 04/20/17 Unknown Rx 5/325] Prednisone [predniSONE 10 mg 10 mg PO .TAPER #1 tab.ds.pk 04/20/17 Unknown Rx (6-Day Pack, 21 Tabs)] Ibuprofen [Motrin 800 MG tab] 800 mg PO Q8HR PRN #20 tablet 08/25/17 Unknown Rx Sulfamethoxazole/Trimethoprim 1 each PO BID #20 tablet 08/25/17 Unknown Rx [Bactrim DS TAB] Sulfamethoxazole/Trimethoprim 1 each PO BID #14 tablet 05/21/18 Unknown Rx [Bactrim DS TAB] Triamcinolone Acetonide 454 gm TP BID #1 cream..g. 05/21/18 Unknown Rx methylPREDNISolone [Medrol Dose 4 mg PO QDAY #1 pack 05/21/18 Unknown Rx Johann] Sulfamethoxazole/Trimethoprim 1 each PO BID #14 tablet 03/01/19 Unknown Rx [Bactrim DS TAB] Triamcinolone 0.1% [Kenalog 0.1% 1 applic TP TID #6 tube 04/14/19 Unknown Rx CREAM] Rash Exam - Exam General: Vital signs noted. No distress. Alert and acting appropriately. HEENT: No Periorbital Edema, No Conjuctival Injection, No Chemosis, No Perioral Edema, No Tongue Edema, No Uvular Edema, No Compromised Airway, No Drooling Lungs: Yes Good Air Exchange (Normal Breath Sounds), No Wheezes, No Ronchi, No Stridor, No Cough, No Labored Respirations, No Retractions, No Use of Accessory Muscles, No Other Abnormal Lung Sounds Heart: Yes Regular, No Murmur Skin: Yes Erythema, Yes Encrustations, No Urticarial Rash, No Maculopapular Rash, No Morbilliform rash, No Bulla(e), No Excoriations, No Weeping, No Tenderness, No Edema, No Other Other: Positive: Abdomen Normal, Neurologic Normal, Musculoskeletal Normal ED Course Vital Signs 03/01/19 07:11 Temperature 98.2 F Pulse Rate 106 H Respiratory 16 Rate Blood Pressure 132/84 O2 Sat by Pulse 100 Oximetry - Reevaluation(s) Reevaluation #1: 03/01/19 09:20 Patient is speaking in full sentences with no signs of distress noted. Critical care attestation.: If time is entered above; I have spent that time in minutes in the direct care of this critically ill patient, excluding procedure time. ED Disposition Clinical Impression: Eczema Qualifiers: Eczema type: unspecified Qualified Code(s): L30.9 - Dermatitis, unspecified Disposition: DC-01 TO HOME OR SELFCARE Is pt being admited?: No Does the pt Need Aspirin: No Condition: Stable Instructions: Eczema (ED) Additional Instructions: Follow-up with a primary care doctor in 3-5 days or if symptoms worsen and continue return to emergency room as soon as possible. Prescriptions: Sulfamethoxazole/Trimethoprim [Bactrim DS TAB] 1 each PO BID #14 tablet Triamcinolone 0.1% [Kenalog 0.1% CREAM] 1 applic TP TID #6 tube Referrals: [facility] [Other] - 3-5 Days PRIMARY CAREMD [Referring] - 3-5 Days HEBER TONG MD [Staff Physician] - 3-5 Days [facility] [Outside] - 3-5 Days [facility] [Outside] - 3-5 Days Forms: Work/School Release Form(ED)
== END 2019-03-01 09:28 | disposition home or self-care (01) ==
LOC: ED 07:04
DX: L30.9 Dermatitis, unspecified (principal)
CPT/HCPCS: 99281

== ENCOUNTER 2019-10-29 15:58 | Emergency (ER) | payer SELFPAY ==
[2019-10-29 16:04] VITALS: BP 125/85
--- NOTE | 2019-10-29 16:08 | Emergency Department Report ---
Chief Complaint: Upper Respiratory Infection Stated Complaint: COLD/FLU LIKE SYMPTOMS Time Seen by Provider: 10/29/19 16:03 - HPI History of Present Illness: 29 y/o male comes in for a cough since Saturday. No fever . OTC cough meds has helped. - Exam Vital Signs: Vital Signs 10/29/19 16:02 Temperature 98.6 F Pulse Rate 102 H Respiratory 16 Rate Blood Pressure 125/85 O2 Sat by Pulse 96 Oximetry Physical Exam: AxO times 3 NAD Chest CTA Heart RRR Ambulating without difficulties. MSE screening note: Focused history and physical exam performed. Due to findings the following was ordered: Recommend OTC meds. Referral to Dr. Andres ED Disposition for MSE Condition: Stable
== END 2019-10-29 16:35 | disposition left against medical advice (07) ==
LOC: ED 15:58
DX: J00 Acute nasopharyngitis [common cold] (principal); Z53.21 Procedure and treatment not carried out due to patient leaving prior to being seen by health care provider

== ENCOUNTER 2020-01-25 13:08 | Emergency (ER) | payer SELFPAY ==
[2020-01-25 15:28] VITALS: BP 115/75
--- NOTE | 2020-01-25 15:31 | Emergency Department Report ---
ED Rash HPI - HPI Chief Complaint: Skin Rash Stated Complaint: SKIN IRRITATION/RASH Time Seen by Provider: 01/25/20 15:26 Duration: 20 years Location: Upper Extremities Suspected Cause: Unknown Rash Symptoms: Yes Itching, No Facial Swelling, No Tongue/Oral Swelling, No Breathing Difficulties, No Choking Sensation, No Wheezing/Dyspnea, No Peeling, No Blistering, No Fever, No Lightheaded, No Malaise, No Myalgias Severity: mild Other History: This is a 29-year-old male nontoxic well in appearance with no signs of distress presents to the ED with complaint of bilatreal arm itching and scaly rash x20 years. HX of eczema and symptoms are samePatient denies any swelling, pus, or drainage. Patient denies any other symptoms. Denies any fever, chills, headache, nausea, vomiting, chest pain or SOB. Denies any other complaints. HX of similar symptoms. ED Review of Systems ROS: Stated complaint: SKIN IRRITATION/RASH Other details as noted in HPI Constitutional: denies: chills, fever Eyes: denies: eye pain, eye discharge, vision change ENT: denies: ear pain, throat pain Respiratory: denies: cough, shortness of breath, wheezing Cardiovascular: denies: chest pain, palpitations Endocrine: no symptoms reported Gastrointestinal: denies: abdominal pain, nausea, diarrhea Genitourinary: denies: urgency, dysuria Musculoskeletal: denies: back pain, joint swelling, arthralgia Skin: rash. denies: lesions Neurological: denies: headache, weakness, paresthesias Psychiatric: denies: anxiety, depression Hematological/Lymphatic: denies: easy bleeding, easy bruising ED Past Medical Hx - Past Medical History Previous Medical History?: Yes Hx Hypertension: No Hx CVA: No Additional medical history: Wiscott-Boyd syndrome. eczema - Surgical History Past Surgical History?: Yes Additional Surgical History: Infusion port placed & removed; [place] teeth extraction - Social History Smoking Status: Never Smoker Substance Use Type: Alcohol - Medications Home Medications: Home Medications Medication Instructions Recorded Confirmed Last Taken Type HYDROcodone/APAP 5-325 [[place] 1 each PO Q6HR PRN #20 tablet 03/31/14 Unknown Rx 5/325 mg] Amoxicillin [Trimox CAP] 500 mg PO Q8H #30 capsule 05/17/14 Unknown Rx HYDROcodone/APAP 5-325 [[place] 1 each PO Q6HR PRN #10 tablet 05/17/14 Unknown Rx 5/325] Ciprofloxacin [Ciprofloxacin ORAL 500 mg PO Q12H #14 ml 08/02/15 Unknown Rx LIQ] Phenazopyridine [Pyridium] 100 mg PO TID #6 tab 08/02/15 Unknown Rx Azithromycin [Zithromax Z-JOHANN] 250 mg PO DAILY #6 tab 12/15/15 Unknown Rx Chlorhexidine Mouthwash [Peridex] 15 ml MM BID #1 bottle 12/15/15 Unknown Rx Acetaminophen/Codeine [Tylenol 1 tab PO Q6H PRN #12 tab 03/08/16 Unknown Rx /Codeine # 3 tab] Clindamycin [Clindamycin CAP] 150 mg PO QID #40 capsule 03/08/16 Unknown Rx Neomy/Polymyx B/Hc (Otic) Soln 4 drops OTIC TID #1 bottle 05/27/16 Unknown Rx [Cortisporin (Otic) Soln] Ibuprofen [Motrin] 600 mg PO Q8H PRN #20 tablet 04/17/17 Unknown Rx Sulfamethoxazole/Trimethoprim 1 each PO BID #20 tablet 04/17/17 Unknown Rx [Bactrim DS TAB] HYDROcodone/APAP 5-325 [[place] 1 each PO Q6HR PRN #8 tablet 04/20/17 Unknown Rx 5/325] Prednisone [predniSONE 10 mg 10 mg PO .TAPER #1 tab.ds.pk 04/20/17 Unknown Rx (6-Day Pack, 21 Tabs)] Ibuprofen [Motrin 800 MG tab] 800 mg PO Q8HR PRN #20 tablet 08/25/17 Unknown Rx Sulfamethoxazole/Trimethoprim 1 each PO BID #20 tablet 08/25/17 Unknown Rx [Bactrim DS TAB] Sulfamethoxazole/Trimethoprim 1 each PO BID #14 tablet 05/21/18 Unknown Rx [Bactrim DS TAB] Triamcinolone Acetonide 454 gm TP BID #1 cream..g. 05/21/18 Unknown Rx methylPREDNISolone [Medrol Dose 4 mg PO QDAY #1 pack 05/21/18 Unknown Rx Johann] Sulfamethoxazole/Trimethoprim 1 each PO BID #14 tablet 03/01/19 Unknown Rx [Bactrim DS TAB] Triamcinolone 0.1% [Kenalog 0.1% 1 applic TP TID #6 tube 03/01/19 Unknown Rx CREAM] Rash Exam - Exam General: Vital signs noted. No distress. Alert and acting appropriately. HEENT: No Periorbital Edema, No Conjuctival Injection, No Chemosis, No Perioral Edema, No Tongue Edema, No Uvular Edema, No Compromised Airway, No Drooling Lungs: Yes Good Air Exchange (Normal Breath Sounds), No Wheezes, No Ronchi, No Stridor, No Cough, No Labored Respirations, No Retractions, No Use of Accessory Muscles, No Other Abnormal Lung Sounds Heart: Yes Regular, No Murmur Skin: Yes Other (scaly rash to bilateral upper arms), No Urticarial Rash, No Maculopapular Rash, No Morbilliform rash, No Bulla(e), No Excoriations, No Weeping, No Tenderness, No Erythema, No Edema, No Encrustations Other: Positive: Abdomen Normal, Neurologic Normal, Musculoskeletal Normal ED Course - Reevaluation(s) Reevaluation #1: 01/25/20 15:30 Patient is speaking in full sentences with no signs of distress noted. ED Medical Decision Making - Medical Decision Making Patient presents with eczema flareup. Patient was instructed to Follow-up with a primary care doctor in 3-5 days or if symptoms worsen and continue return to emergency room as soon as possible. At time of discharge, the patient does not seem toxic or ill in appearance. No acute signs of distress noted. Patient agrees to discharge treatment plan of care. No further questions noted by the patient. Critical care attestation.: If time is entered above; I have spent that time in minutes in the direct care of this critically ill patient, excluding procedure time. ED Disposition Clinical Impression: Chronic eczema Disposition: Z-07 MED SCREENING EXAM-LEFT Is pt being admited?: No Does the pt Need Aspirin: No Condition: Stable Instructions: Eczema (ED) Additional Instructions: Follow-up with a primary care doctor in 3-5 days or if symptoms worsen and continue return to emergency room as soon as possible. Referrals: PRIMARY CAREMD [Referring] - 3-5 Days LEONEL DU MD [Staff Physician] - 3-5 Days [facility] [Outside] - 3-5 Days
== END 2020-01-25 16:07 | disposition left against medical advice (07) ==
LOC: ED 13:08
DX: L30.9 Dermatitis, unspecified (principal); Z79.2 Long term (current) use of antibiotics; Z79.1 Long term (current) use of non-steroidal anti-inflammatories (NSAID); Z79.899 Other long term (current) drug therapy
CPT/HCPCS: 99281

== ENCOUNTER 2020-02-15 00:43 | Emergency (ER) | payer SELFPAY ==
[2020-02-15 01:08] VITALS: BP 144/94
--- NOTE | 2020-02-15 02:47 | Emergency Department Report ---
ED Male HPI - General Chief complaint: Urogenital-Male Stated complaint: PAINFUL WART Time Seen by Provider: 02/15/20 02:41 Source: patient Mode of arrival: Ambulatory Limitations: No Limitations - History of Present Illness Initial comments: This is a 29-year-old male here complaining warts to his rectal area that are painful and bleeding. Patient denies any urinary burning frequency urgency. Denies any testicular pain. Denies any bleeding from his anus. Patient said he has had warts since he was younger and he had removed by yarn skeins examiner. He has had similar symptoms in the past. Denies any fever or chills. Denies any cough shortness of breath, sore throat, nausea vomiting or diarrhea. Denies any abdominal pain. Denies any back pain. Pain to warts is 4 out of 10 and burning. Pain is worse with sitting and intermittent. No medication use for pain. Denies any constipation patient came to the hospital via ambulance MD Complaint: other (Rectal warts) -: year(s) Radiation: none Severity: mild Severity scale (0 -10): 4 Improves with: other (Burning) other (Rectal warts). denies: discharge, swelling, mass, rash, urinary retention, blood in urine, dysuria, fever, nausea/vomiting, incontinence - Related Data Previous Rx's Medication Instructions Recorded Last Taken Type HYDROcodone/APAP 5-325 [[place] 1 each PO Q6HR PRN #20 tablet 03/31/14 Unknown Rx 5/325 mg] Amoxicillin [Trimox CAP] 500 mg PO Q8H #30 capsule 05/17/14 Unknown Rx HYDROcodone/APAP 5-325 [[place] 1 each PO Q6HR PRN #10 tablet 05/17/14 Unknown Rx 5/325] Ciprofloxacin [Ciprofloxacin ORAL 500 mg PO Q12H #14 ml 08/02/15 Unknown Rx LIQ] Phenazopyridine [Pyridium] 100 mg PO TID #6 tab 08/02/15 Unknown Rx Azithromycin [Zithromax Z-JOHANN] 250 mg PO DAILY #6 tab 12/15/15 Unknown Rx Chlorhexidine Mouthwash [Peridex] 15 ml MM BID #1 bottle 12/15/15 Unknown Rx Acetaminophen/Codeine [Tylenol 1 tab PO Q6H PRN #12 tab 03/08/16 Unknown Rx /Codeine # 3 tab] Clindamycin [Clindamycin CAP] 150 mg PO QID #40 capsule 03/08/16 Unknown Rx Neomy/Polymyx B/Hc (Otic) Soln 4 drops OTIC TID #1 bottle 05/27/16 Unknown Rx [Cortisporin (Otic) Soln] Ibuprofen [Motrin] 600 mg PO Q8H PRN #20 tablet 04/17/17 Unknown Rx Sulfamethoxazole/Trimethoprim 1 each PO BID #20 tablet 04/17/17 Unknown Rx [Bactrim DS TAB] HYDROcodone/APAP 5-325 [[place] 1 each PO Q6HR PRN #8 tablet 04/20/17 Unknown Rx 5/325] Prednisone [predniSONE 10 mg 10 mg PO .TAPER #1 tab.ds.pk 04/20/17 Unknown Rx (6-Day Pack, 21 Tabs)] Ibuprofen [Motrin 800 MG tab] 800 mg PO Q8HR PRN #20 tablet 08/25/17 Unknown Rx Sulfamethoxazole/Trimethoprim 1 each PO BID #20 tablet 08/25/17 Unknown Rx [Bactrim DS TAB] Sulfamethoxazole/Trimethoprim 1 each PO BID #14 tablet 05/21/18 Unknown Rx [Bactrim DS TAB] Triamcinolone Acetonide 454 gm TP BID #1 cream..g. 05/21/18 Unknown Rx methylPREDNISolone [Medrol Dose 4 mg PO QDAY #1 pack 05/21/18 Unknown Rx Johann] Sulfamethoxazole/Trimethoprim 1 each PO BID #14 tablet 03/01/19 Unknown Rx [Bactrim DS TAB] Triamcinolone 0.1% [Kenalog 0.1% 1 applic TP TID #6 tube 03/01/19 Unknown Rx CREAM] Lidocaine [Lidocaine GEL] 30 gm TP Q8H PRN 5 Days #1 02/15/20 Unknown Rx gel..gram. Allergies Allergy/AdvReac Type Severity Reaction Status Date / Time No Known Allergies Allergy Verified 02/15/20 01:07 ED Review of Systems ROS: Stated complaint: PAINFUL WART Other details as noted in HPI Constitutional: denies: chills, fever ENT: denies: throat pain, dental pain, congestion Respiratory: denies: cough, shortness of breath, wheezing Cardiovascular: denies: chest pain, palpitations, dyspnea on exertion, edema, syncope Gastrointestinal: denies: abdominal pain, nausea, vomiting, diarrhea, hematemesis, melena, hematochezia Genitourinary: other (Rectal warts). denies: urgency, dysuria, frequency, hematuria, discharge, testicular pain, testicular mass Skin: other (Rectal warts) Neurological: denies: headache ED Past Medical Hx - Past Medical History Previous Medical History?: Yes Hx Hypertension: No Hx CVA: No Additional medical history: Wiscott-Boyd syndrome. eczema. Rectal warts - Surgical History Past Surgical History?: Yes Additional Surgical History: Infusion port placed & removed; Twain teeth extraction - Family History Family history: hypertension - Social History Smoking Status: Never Smoker Substance Use Type: None - Medications Home Medications: Home Medications Medication Instructions Recorded Confirmed Last Taken Type HYDROcodone/APAP 5-325 [[place] 1 each PO Q6HR PRN #20 tablet 03/31/14 Unknown Rx 5/325 mg] Amoxicillin [Trimox CAP] 500 mg PO Q8H #30 capsule 05/17/14 Unknown Rx HYDROcodone/APAP 5-325 [[place] 1 each PO Q6HR PRN #10 tablet 05/17/14 Unknown Rx 5/325] Ciprofloxacin [Ciprofloxacin ORAL 500 mg PO Q12H #14 ml 08/02/15 Unknown Rx LIQ] Phenazopyridine [Pyridium] 100 mg PO TID #6 tab 08/02/15 Unknown Rx Azithromycin [Zithromax Z-JOHANN] 250 mg PO DAILY #6 tab 12/15/15 Unknown Rx Chlorhexidine Mouthwash [Peridex] 15 ml MM BID #1 bottle 12/15/15 Unknown Rx Acetaminophen/Codeine [Tylenol 1 tab PO Q6H PRN #12 tab 03/08/16 Unknown Rx /Codeine # 3 tab] Clindamycin [Clindamycin CAP] 150 mg PO QID #40 capsule 03/08/16 Unknown Rx Neomy/Polymyx B/Hc (Otic) Soln 4 drops OTIC TID #1 bottle 05/27/16 Unknown Rx [Cortisporin (Otic) Soln] Ibuprofen [Motrin] 600 mg PO Q8H PRN #20 tablet 04/17/17 Unknown Rx Sulfamethoxazole/Trimethoprim 1 each PO BID #20 tablet 04/17/17 Unknown Rx [Bactrim DS TAB] HYDROcodone/APAP 5-325 [[place] 1 each PO Q6HR PRN #8 tablet 04/20/17 Unknown Rx 5/325] Prednisone [predniSONE 10 mg 10 mg PO .TAPER #1 tab.ds.pk 04/20/17 Unknown Rx (6-Day Pack, 21 Tabs)] Ibuprofen [Motrin 800 MG tab] 800 mg PO Q8HR PRN #20 tablet 08/25/17 Unknown Rx Sulfamethoxazole/Trimethoprim 1 each PO BID #20 tablet 08/25/17 Unknown Rx [Bactrim DS TAB] Sulfamethoxazole/Trimethoprim 1 each PO BID #14 tablet 05/21/18 Unknown Rx [Bactrim DS TAB] Triamcinolone Acetonide 454 gm TP BID #1 cream..g. 05/21/18 Unknown Rx methylPREDNISolone [Medrol Dose 4 mg PO QDAY #1 pack 05/21/18 Unknown Rx Johann] Sulfamethoxazole/Trimethoprim 1 each PO BID #14 tablet 03/01/19 Unknown Rx [Bactrim DS TAB] Triamcinolone 0.1% [Kenalog 0.1% 1 applic TP TID #6 tube 03/01/19 Unknown Rx CREAM] Lidocaine [Lidocaine GEL] 30 gm TP Q8H PRN 5 Days #1 02/15/20 Unknown Rx gel..gram. ED Physical Exam - General Limitations: No Limitations General appearance: alert, in no apparent distress - Head Head exam: Present: atraumatic, normocephalic - Eye Eye exam: Present: normal appearance - ENT ENT exam: Present: normal exam, normal orophraynx, mucous membranes moist - Neck Neck exam: Present: normal inspection, full ROM. Absent: tenderness - Respiratory Respiratory exam: Present: normal lung sounds bilaterally. Absent: respiratory distress, chest wall tenderness - Cardiovascular Cardiovascular Exam: Present: regular rate, normal rhythm, normal heart sounds - GI/Abdominal GI/Abdominal exam: Present: soft, normal bowel sounds. Absent: tenderness - Rectal Rectal exam: Present: other (Noted rectal warts externally that is cauliflower- looking appearance and multiple warts noted.). Absent: normal inspection, hemorrhoids - External exam: Present: other (Rectal warts). Absent: normal external exam - Extremities Exam Extremities exam: Present: normal inspection, full ROM, pedal edema - Neurological Exam Neurological exam: Present: alert, oriented X3, normal gait ED Course Vital Signs 02/15/20 01:07 Temperature 97.8 F Pulse Rate 100 H Respiratory 18 Rate Blood Pressure 144/94 O2 Sat by Pulse 97 Oximetry - Reevaluation(s) Reevaluation #1: 02/15/20 02:54 I discussed with patient that he will need to be reevaluated by yarn skeins examiner and follow-up with primary care. I discussed with him that he has rectal warts that are too many to remove with podophyllin topical wart remover and he is not in need warts to be removed surgically. He voiced understanding. No overt bleeding noted at site. ED Medical Decision Making - Medical Decision Making This is a 29-year-old male here for rectal warts and requesting treatment. He said the warts are painful and bleeding but no bleeding noted with my exam. Noted multiple warts in the rectal area. I discussed with patient that he needs to see yarn skeins examiner for removal of warts and he voiced understanding. I discussed with him that I will be able to prescribe topical lidocaine to help with pain but a warts cannot be removed in emergency room and he voiced understanding. Patient is stable in no distress and discharged home in stable condition with prescription for topical lidocaine Critical care attestation.: If time is entered above; I have spent that time in minutes in the direct care of this critically ill patient, excluding procedure time. ED Disposition Clinical Impression: Anogenital wart Disposition: DC-01 TO HOME OR SELFCARE Is pt being admited?: No Does the pt Need Aspirin: No Condition: Stable Instructions: Genital Warts (ED) Additional Instructions: Please keep affected area clean and dry Follow-up with primary care physician and yarn skeins examiner to address anal warts You can place topical lidocaine ointment to warts to relieve pain 3 times a day You will have to have warts surgically removed If your condition worsens, return to the emergency room Prescriptions: Lidocaine [Lidocaine GEL] 30 gm TP Q8H PRN 5 Days #1 gel..gram. PRN Reason: Painful wart Referrals: PRIMARY CAREMD [Primary Care Provider] - 02/16/20 DWIGHT CISNEROS MD [Staff Physician] - 2-3 Days Forms: Work/School Release Form(ED)
== END 2020-02-15 03:15 | disposition home or self-care (01) ==
LOC: ED 00:43
DX: A63.0 Anogenital (venereal) warts (principal); Z98.890 Other specified postprocedural states; Z79.899 Other long term (current) drug therapy
CPT/HCPCS: 99281